=== PATIENT | female | born 1990 | race Caucasian/White ===

== ENCOUNTER 2017-09-09 21:12 | Observation (INO) | payer OTHER ==
--- NOTE | 2017-09-09 21:20 | PDOC ---
History of Present Illness - General Chief Complaint: Pain, Acute Stated Complaint: /UTI/ FLANK PAIN Time Seen by Provider: 09/09/17 21:19 History Source: Patient Exam Limitations: No Limitations - History of Present Illness Initial Comments: 09/09/17 22:54 This is a 27-year-old female who comes in complaining of right flank pain. Patient had some urgency earlier in the day and went to see her OB and had a urinalysis done the urinalysis showed a small amount of blood no white cells or bacteria and patient was started on Keflex for probable urinary tract infection. Patient prior to coming in and then symptoms developed severe right flank pain radiating to the right groin area with associated nausea. Here in the emergency room patient says the pain is an 8 out of 10. Patient's complaining of some nausea but no vomiting. Patient denies any fevers or chills. Patient is 19 weeks , she denies any vaginal discharge, bleeding or abdominal cramping. PAST MEDICAL HISTORY: no significant history PAST SURGICAL HISTORY: no significant history FAMILY HISTORY: no pertinant history SOCIAL HISTORY: Pt lives with family and is employed. MEDICATIONS: reviewed ALLERGIES: As per nursing notes Review of Systems General: No fevers or chills, no weakness, no weight loss HEENT: No change in vision. No sore throat,. No ear pain CardioVascular: No chest pain or shortness of breath Respiratory:No cough, or wheezing. Gastrointestinal: no nausea, vomitting, diarrhea or constipation, No rectal bleeding Genitourinary: No dysuria, hematuria, or frequency Musculoskeletal: No joint or muscle pain or swelling Neurologic: No headache, vertigo, dizziness or loss of consciousness Psychiatric: nor depression Skin: No rashes or easy bruising Endocrine: no increased thirst or abnormal weight change Allergic: no skin or latex allergy All other systems reviewed and normal Exam: General: Well-nourished well-developed individual, no acute distress HEENT: Throat: Normal, tonsils normal, no erythema or exudate Neck: Supple, no meningeal signs, no lymphadenopathy Eyes::Pupils equal reactive and round, extraocular motion intact Flank: There is right flank tenderness on palpation there is no CVA tenderness. Abdomen: Soft, nondistended, normal bowel sounds, mild tenderness right lateral lower abdominal area with no guarding or rebound Extremities: Warm, dry, no cyanosis, clubbing, or edema Skin: No rashes Neuro: Alert and oriented x3, CN II - XII intact, nonfocal exam with normal strength, normal sensation, normal reflexes, normal gait, Psych: Normal mood and affect Medical decision making: This is a 27-year-old female who is 19 weeks and comes in with a diagnosis of UTI based on urine in her blood but no arterial white cells. Patient was started on Keflex. Patient now developed severe flank pain radiating to her groin area. Patient has a family history of renal colic. Patient denies any personal history of renal colic. Will obtain a workup including ultrasound renal, CBC, comp, we'll give patient IV fluids. Discussed with patient pain medication as she is very uncomfortable and needs some pain medication. Patient is aware of the risks of both the opioids and Toradol. Patient opted for Toradol at this time. Patient is 19 weeks so other considered a class C. 09/09/17 23:50 Patient's ultrasound shows hydronephrosis but no definitive stone was seen. Given patient's symptoms there is a high level of suspicion for this being a kidney stone. As her urinalysis has a large amount of blood there is also some white cells and bacteria. Patient has an 18.8 thousand white count but no left shift neutrophils are 80%. Patient is feeling better post some fluids and Toradol, will give ceftriaxone for presumed infected stone with some obstruction versus pyelonephritis. Patient's OB who is at [facility] was contacted Dr. Suresh Chu discussed with patient's OB who recommended that we admit the patient for IV antibiotics and have the patient seen by urology to rule out probable stone. Past History - Past Medical History Allergies/Adverse Reactions: Allergies Allergy/AdvReac Type Severity Reaction Status Date / Time No Known Allergies Allergy Verified 09/09/17 21:16 Home Medications: Ambulatory Orders Cephalexin [Keflex] 500 mg PO BID 09/09/17 COPD: No - Suicide/Smoking/Psychosocial Hx Smoking History: Never smoked Have you smoked in the past 12 months: No Hx Alcohol Use: No Drug/Substance Use Hx: No Substance Use Type: None ED Treatment Course - LABORATORY CBC & Chemistry Diagram: 09/09/17 22:40 09/09/17 22:40 *DC/Admit/Observation/Transfer Diagnosis at time of Disposition: Pyelonephritis affecting in second trimester - Discharge Dispostion Condition at time of disposition: Stable Admit: Yes - Referrals - Patient Instructions - Post Discharge Activity
[2017-09-09 22:23] LABS: URINE APPEARANCE Clear; URINE BILIRUBIN Negative (NEGATIVE); URINE BLOOD 3+ (NEGATIVE); URINE COLOR YELLOW; URINE GLUCOSE (UA) Negative (NEGATIVE); URINE KETONE 2+ (NEGATIVE); URINE LEUK ESTERASE TRACE (NEGATIVE); URINE NITRITE Negative (NEGATIVE); URINE PROTEIN Trace (NEGATIVE); URINE UROBILINOGEN 0.2 (0.2-1.0)
[2017-09-09] MEDS ORDERED: SODIUM CHLORIDE 1,000 ML IV ONE (22:26)
[2017-09-09] MEDS ORDERED: ONDANSETRON 4 MG/2 ML VIAL IVPUSH ONE (22:26)
[2017-09-09] MEDS ORDERED: morphine CARPU-JECT 4 MG/1 ML DISP.SYRIN IVPUSH ONE (22:27)
[2017-09-09 22:28] LABS: EPI CELLS FEW /HPF; URINE BACTERIA FEW /hpf (NEGATIVE); URINE RBC >100 /hpf (0-3)
[2017-09-09] MEDS ORDERED: KETOROLAC TROMETHAMINE 30 MG/1 ML VIAL IVPUSH ONE (22:37)
[2017-09-09] MEDS ORDERED: KETOROLAC TROMETHAMINE 30 MG/1 ML VIAL ONE (22:44)
[2017-09-09] MEDS ORDERED: ONDANSETRON 4 MG/2 ML VIAL ONE (22:49)
[2017-09-09 23:03] LABS: BASO % 2.1 % (0-2.0); EOS % 0.2 % (0-4.5); HEMATOCRIT 39.5 % (32.4-45.2); HEMOGLOBIN 13.8 GM/dl (10.7-15.3); LYMPH % 13.6 % (8-40); MCH 29.2 pg (25.7-33.7); MCHC 34.8 g/dl (32.0-36.0); MEAN CELL VOLUME 83.9 fl (80-96); MEAN PLT VOLUME 7.3 fl (7.5-11.1); MONO % 3.5 % (3.8-10.2); NEUT % 80.6 % (42.8-82.8); PLATELET COUNT 269 K/MM3 (134-434); RBC 4.71 M/mm3 (3.60-5.2); RDW 12.8 % (11.6-15.6); WHITE BLOOD COUNT 18.8 K/mm3 (4.0-10.8)
[2017-09-09 23:12] LABS: ALBUMIN 3.4 g/dl (3.5-5.0); ALK PHOS 69 U/L (32-92); ANION GAP 8 (8-16); BLOOD UREA NITROGEN 8 mg/dl (7-18); CALCIUM 9.2 mg/dl (8.4-10.2); CHLORIDE 102 mmol/L (98-107); CO2 21 mmol/L (22-28); GLUCOSE,RANDOM 100 mg/dl (74-106); POTASSIUM 3.5 mmol/L (3.5-5.1); SGOT/AST 21 U/L (10-42); SGPT/ALT 22 U/L (10-40); SODIUM 131 mmol/L (136-145); TOT PROT 6.3 g/dl (6.4-8.3)
[2017-09-09] MEDS ORDERED: CEFTRIAXONE 1 GM in DEXTROSE 5%-WATER - 50 ML IVPB ONE (23:25)
[2017-09-09 23:26] LABS: BILIRUBIN,TOTAL < 0.5 mg/dl (0.2-1.0); CREATININE < 0.8 mg/dl (0.6-1.3)
[2017-09-09] MEDS ORDERED: cefTRIAXone SODIUM 1 GM VIAL ONE (23:45)
[2017-09-10] MEDS ORDERED: morphine CARPU-JECT 2 MG/1 ML DISP.SYRIN ONE (03:13)
[2017-09-10] MEDS ORDERED: morphine CARPU-JECT 2 MG/1 ML DISP.SYRIN IVPUSH ONE (03:22)
[2017-09-10 04:18] VITALS: BMI 33.2
--- NOTE | 2017-09-10 08:27 | CON.GU ---
Consult Consult Specialty:: Referred by:: Jg Reason for Consultation:: R hydronephrosis - History of Present Illness Chief Complaint: R flank pain History of Present Illness: 27 yo f 17-18 weeks , pres to ED c/o sudden onset severe R flank pain, found to have mild R hydro, leukocytosis 18 K, poss UTI and cons req. No fever chills - History Source History Provided By: Patient Limitations to Obtaining History: No Limitations - Past Medical History ...LMP: 04/18/17 ...: Yes - Alcohol/Substance Use Hx Alcohol Use: No - Smoking History Smoking history: Never smoked Have you smoked in the past 12 months: No Home Medications - Allergies Allergies/Adverse Reactions: Allergies Allergy/AdvReac Type Severity Reaction Status Date / Time No Known Allergies Allergy Verified 09/09/17 21:16 - Home Medications Home Medications: Ambulatory Orders Cephalexin [Keflex] 500 mg PO BID 09/09/17 Physical Exam- Vital Signs: Vital Signs Temperature 98.2 F 09/10/17 02:45 Pulse Rate 74 09/10/17 02:45 Respiratory Rate 16 09/10/17 02:45 Blood Pressure 108/58 09/10/17 02:45 O2 Sat by Pulse Oximetry (%) 98 09/10/17 02:45 Constitutional: Yes: Well Nourished, No Distress, Calm Eyes: Yes: WNL HENT: Yes: WNL Neck: Yes: WNL Cardiovascular: Yes: WNL Respiratory: Yes: WNL Gastrointestinal: Yes: WNL, Normal Bowel Sounds, Soft Renal/: Yes: CVA Tenderness - Right Labs: CBC, BMP 09/09/17 22:40 09/09/17 22:40 Imaging - Results Ultrasound: Report Reviewed Problem List - Problems (1) Hydronephrosis Code(s): N13.30 - UNSPECIFIED HYDRONEPHROSIS Qualifiers: Hydronephrosis type: with ureteral calculous obstruction Qualified Code(s) : N13.2 - Hydronephrosis with renal and ureteral calculous obstruction Assessment/Plan Imp: R hydronephrosis, leukocytosis, microscopic hematuria, ? R ureteral calculus, ? UTI Rec:ur c+s, IV abxs, ivfs, cysto and R JJ stent insertion if pain continues.
[2017-09-10 08:44] LABS: ANION GAP 4 (8-16); BLOOD UREA NITROGEN 8 mg/dl (7-18); CALCIUM 8.4 mg/dl (8.4-10.2); CHLORIDE 107 mmol/L (98-107); CO2 22 mmol/L (22-28); GLUCOSE,RANDOM 89 mg/dl (74-106); POTASSIUM 3.7 mmol/L (3.5-5.1); SODIUM 133 mmol/L (136-145)
[2017-09-10 08:45] LABS: HEMATOCRIT 34.7 % (32.4-45.2); HEMOGLOBIN 12.2 GM/dl (10.7-15.3); MCH 30.1 pg (25.7-33.7); MCHC 35.1 g/dl (32.0-36.0); MEAN CELL VOLUME 85.7 fl (80-96); MEAN PLT VOLUME 7.4 fl (7.5-11.1); PLATELET COUNT 242 K/MM3 (134-434); RBC 4.05 M/mm3 (3.60-5.2); WHITE BLOOD COUNT 13.4 K/mm3 (4.0-10.8)
[2017-09-10 09:07] LABS: INR 0.97 (0.82-1.09)
[2017-09-10 09:10] LABS: ACTIVATED PTT 24.7 SECONDS (26.9-34.4)
[2017-09-10 09:20] LABS: CREATININE < 0.8 mg/dl (0.6-1.3)
--- NOTE | 2017-09-10 10:29 | HP ---
CHIEF COMPLAINT: Right flank pain PCP: RESEARCH STAFF MEMBER: Dr. Suresh Chu [facility] HISTORY OF PRESENT ILLNESS: This is a 27 year old female with a past medical history of tension headaches who presented to the ED with sudden onset right flank pain yesterday. Pt was evaluated by her MANAGER PROTEIN earlier as she was having suprapubic "pressure". She was started on keflex. On exam today, pt with no further pain. ER course was notable for: (1) US renal no acute findings (2) WBC 18.8 (3) Sodium 131 Recent Travel: pt denies PAST MEDICAL HISTORY: tension headache PAST SURGICAL HISTORY: Appendectomy 2011 Social History: Smoking: pt denies Alcohol: pt denies Drugs: pt denies Family History: mother alive and well father with DM/HTN 1 brother/1 sister, no medical problems Allergies No Known Allergies Allergy (Verified 09/09/17 21:16) HOME MEDICATIONS: 3 Medication Instructions Recorded Cephalexin [Keflex] 500 mg PO BID 09/09/17 Amytriptyline 30mg daily REVIEW OF SYSTEMS CONSTITUTIONAL: Absent: fever, chills, diaphoresis, generalized weakness, malaise, loss of appetite, weight change HEENT: Absent: rhinorrhea, nasal congestion, throat pain, throat swelling, difficulty swallowing, mouth swelling, ear pain, eye pain, visual changes CARDIOVASCULAR: Absent: chest pain, syncope, palpitations, irregular heart rate, lightheadedness , peripheral edema RESPIRATORY: Absent: cough, shortness of breath, dyspnea with exertion, orthopnea, wheezing, stridor, hemoptysis GASTROINTESTINAL: Absent: abdominal pain, abdominal distension, nausea, vomiting, diarrhea, constipation, melena, hematochezia GENITOURINARY: Present: flank pain Absent: dysuria, frequency, urgency, hesitancy, hematuria, genital pain MUSCULOSKELETAL: Absent: myalgia, arthralgia, joint swelling, back pain, neck pain SKIN: Absent: rash, itching, pallor HEMATOLOGIC/IMMUNOLOGIC: Absent: easy bleeding, easy bruising, lymphadenopathy, frequent infections ENDOCRINE: Absent: unexplained weight gain, unexplained weight loss, heat intolerance, cold intolerance NEUROLOGIC: Absent: headache, focal weakness or paresthesias, dizziness, unsteady gait, seizure, mental status changes, bladder or bowel incontinence PSYCHIATRIC: Absent: anxiety, depression, suicidal or homicidal ideation, hallucinations. PHYSICAL EXAMINATION Vital Signs - 24 hr 3 09/09/17 09/10/17 09/10/17 21:18 02:45 09:00 Temperature 97.7 F 98.2 F 98.3 F Pulse Rate 85 74 94 H Respiratory 16 16 18 Rate Blood Pressure 105/59 108/58 106/56 O2 Sat by Pulse 100 98 100 Oximetry (%) GENERAL: Awake, alert, and fully oriented, in no acute distress. HEAD: Normal with no signs of trauma. EYES: Pupils equal, round and reactive to light, extraocular movements intact, sclera anicteric, conjunctiva clear. No lid lag. EARS, NOSE, THROAT: Ears normal, nares patent, oropharynx clear without exudates. Moist mucous membranes. NECK: Normal range of motion, supple without lymphadenopathy, JVD, or masses. LUNGS: Breath sounds equal, clear to auscultation bilaterally. No wheezes, and no crackles. No accessory muscle use. HEART: Regular rate and rhythm, normal S1 and S2 without murmur, rub or gallop. ABDOMEN: Soft, nontender, not distended, normoactive bowel sounds, no guarding, no rebound, no masses. No hepatomegaly or splenomegaly. MUSCULOSKELETAL: Normal range of motion at all joints. No bony deformities or tenderness. right CVA tenderness. UPPER EXTREMITIES: 2+ pulses, warm, well-perfused. No cyanosis. No clubbing. No peripheral edema. LOWER EXTREMITIES: 2+ pulses, warm, well-perfused. No calf tenderness. No peripheral edema. NEUROLOGICAL: Cranial nerves II-XII intact. Normal speech. Normal gait. PSYCHIATRIC: Cooperative. Good eye contact. Appropriate mood and affect. SKIN: Warm, dry, normal turgor, no rashes or lesions noted, normal capillary refill. Laboratory Results - last 24 hr 3 09/09/17 09/09/17 09/09/17 22:00 22:40 22:40 WBC 18.8 H RBC 4.71 Hgb 13.8 Hct 39.5 MCV 83.9 MCH 29.2 MCHC 34.8 RDW 12.8 Plt Count 269 MPV 7.3 L Neutrophils % 80.6 Lymphocytes % 13.6 Monocytes % 3.5 L Eosinophils % 0.2 Basophils % 2.1 H PT with INR INR PTT (Actin FS) Sodium 131 L Potassium 3.5 Chloride 102 Carbon Dioxide 21 L Anion Gap 8 BUN 8 Creatinine < 0.8 Creat Clearance w eGFR > 60 Random Glucose 100 Calcium 9.2 Total Bilirubin < 0.5 AST 21 ALT 22 Alkaline Phosphatase 69 Total Protein 6.3 L Albumin 3.4 L Urine Color Yellow Urine Appearance Clear Urine pH 6.0 Ur Specific Hamilton >= 1.030 H Urine Protein Trace Urine Glucose (UA) Negative Urine Ketones 2+ H Urine Blood 3+ H Urine Nitrite Negative Urine Bilirubin Negative Urine Urobilinogen 0.2 Ur Leukocyte Esterase Trace H Urine RBC >100 Urine WBC 5-10 Ur Epithelial Cells Few Urine Bacteria Few 3 09/10/17 09/10/17 09/10/17 08:00 08:00 08:00 WBC 13.4 H RBC 4.05 Hgb 12.2 D Hct 34.7 MCV 85.7 MCH 30.1 MCHC 35.1 RDW 13.0 Plt Count 242 MPV 7.4 L Neutrophils % Lymphocytes % Monocytes % Eosinophils % Basophils % PT with INR 11.00 INR 0.97 PTT (Actin FS) 24.7 L Sodium 133 L Potassium 3.7 Chloride 107 Carbon Dioxide 22 Anion Gap 4 L BUN 8 Creatinine < 0.8 Creat Clearance w eGFR Random Glucose 89 Calcium 8.4 Total Bilirubin AST ALT Alkaline Phosphatase Total Protein Albumin Urine Color Urine Appearance Urine pH Ur Specific Hamilton Urine Protein Urine Glucose (UA) Urine Ketones Urine Blood Urine Nitrite Urine Bilirubin Urine Urobilinogen Ur Leukocyte Esterase Urine RBC Urine WBC Ur Epithelial Cells Urine Bacteria Radiology Reports ASSESSMENT/PLAN: 27yF with PMH tension headaches presented to the ED with sudden onset R flank pain. R ureteral hydronephrosis, leukocytosis, ? ureteral calculi vs UTI/pyelo - cont ceftriaxone 1g IVPB HS - NS @ 125cc/hr - tamsulosin not given as pt is , no known human studies available. - strain all urine DVT PPX - defer heparin, likely DC in am FEN - NS @ 125cc/hr - bmp in am - regular diet as tolerated Dispo: pt currently requires further observation for management of her emergent condition. Visit type - Emergency Visit Emergency Visit: Yes ED Registration Date: 09/09/17 Care time: The patient presented to the Emergency Department on the above date and was hospitalized for further evaluation of their emergent condition. - New Patient This patient is new to me today: Yes Date on this admission: 09/10/17 - Critical Care Critical Care patient: No Hospitalist Screening - Colonoscopy Questionnaire Colonoscopy Questionnaire: Colonoscopy Questionnaire - Patient: 50 - 75 years old and never had a screening colonoscopy: No History of colon or rectal polyps, or CA: No History of IBD, Crohn's disease or UC: No History of abdominal radiation therapy as a child: No - Relative: 1 with colon or rectal CA, or polyps at age 60 or younger: No Colon or rectal CA diagnosed at age 45 or younger: No Multiple relatives with colon or rectal CA: No - Outcome: Screening Result: Negative Screen
[2017-09-10] MEDS: ACETAMINOPHEN 325 MG TABLET (FP) PO PRN ×2 (12:31→19:50)
[2017-09-10] MEDS: SODIUM CHLORIDE 1,000 ML IV SCH (19:32)
[2017-09-10] MEDS ORDERED: AMITRIPTYLINE HCL 10 MG TABLET (FP) PO SCH (22:00)
[2017-09-10] MEDS ORDERED: CEFTRIAXONE 1 G/50 ML PREMIX 50 ML IVPB SCH (22:00)
[2017-09-11 08:56] LABS: BASO % 0.3 % (0-2.0); EOS % 1.1 % (0-4.5); HEMOGLOBIN 11.5 GM/dl (10.7-15.3); MCH 28.8 pg (25.7-33.7); MCHC 33.9 g/dl (32.0-36.0); MEAN PLT VOLUME 7.6 fl (7.5-11.1); MONO % 4.4 % (3.8-10.2); NEUT % 74.2 % (42.8-82.8); PLATELET COUNT 191 K/MM3 (134-434); RDW 12.8 % (11.6-15.6); WHITE BLOOD COUNT 8.2 K/mm3 (4.0-10.8)
[2017-09-11 09:08] LABS: ANION GAP 3 (8-16); CALCIUM 7.9 mg/dl (8.4-10.2); CHLORIDE 108 mmol/L (98-107); CO2 23 mmol/L (22-28); GLUCOSE,RANDOM 81 mg/dl (74-106); MAGNESIUM 1.6 mg/dL (1.8-2.4); PHOSPHOROUS 2.8 mg/dl (2.5-4.6); SODIUM 134 mmol/L (136-145)
[2017-09-11 09:33] LABS: BLOOD UREA NITROGEN < 6 mg/dl (7-18); CREATININE < 0.8 mg/dl (0.6-1.3)
[2017-09-11] MEDS ORDERED: MAGNESIUM SULFATE 2 GM in SODIUM CHLORIDE 100 ML IVPB ONE (09:49)
--- NOTE | 2017-09-11 09:51 | PN ---
Physical Exam: SUBJECTIVE: Patient seen and examined, denies any flank pain, nausea or vomiting. OBJECTIVE: Patient is a 27 y/o female, , patient is 19 weeks gestation, pmh of tension headaches, admitted to observation from the emergency department for mild right sided hydronephrosis Vital Signs Period Temp Pulse Resp BP Sys/Maurer Pulse Ox Last 24 Hr 97.6 F-98.3 F 74-87 18-20 106-125/66-86 97-100 GENERAL: The patient is awake, alert, and fully oriented, in no acute distress. HEAD: Normal with no signs of trauma. EYES: PERRL, extraocular movements intact, sclera anicteric, conjunctiva clear. No ptosis. ENT: Ears normal, nares patent, oropharynx clear without exudates, moist mucous membranes. NECK: Trachea midline, full range of motion, supple. LUNGS: Breath sounds equal, clear to auscultation bilaterally, no wheezes, no crackles, no accessory muscle use. HEART: Regular rate and rhythm, S1, S2 without murmur, rub or gallop. ABDOMEN: Soft, nontender, nondistended, normoactive bowel sounds, no guarding, no rebound, no hepatosplenomegaly, no masses. EXTREMITIES: 2+ pulses, warm, well-perfused, no edema. NEUROLOGICAL: Cranial nerves II through XII grossly intact. Normal speech, gait not observed. PSYCH: Normal mood, normal affect. SKIN: Warm, dry, normal turgor, no rashes or lesions noted Laboratory Results - last 24 hr CBC WBC 8.2 K/mm3 (4.0-10.8) D 09/11/17 07:15 RBC 4.00 M/mm3 (3.60-5.2) 09/11/17 07:15 Hgb 11.5 GM/dl (10.7-15.3) 09/11/17 07:15 Hct 34.0 % (32.4-45.2) 09/11/17 07:15 MCV 85.0 fl (80-96) 09/11/17 07:15 MCH 28.8 pg (25.7-33.7) 09/11/17 07:15 MCHC 33.9 g/dl (32.0-36.0) 09/11/17 07:15 RDW 12.8 % (11.6-15.6) 09/11/17 07:15 Plt Count 191 K/MM3 (134-434) 09/11/17 07:15 MPV 7.6 fl (7.5-11.1) 09/11/17 07:15 Neutrophils % 74.2 % (42.8-82.8) 09/11/17 07:15 Lymphocytes % 20.0 % (8-40) 09/11/17 07:15 Monocytes % 4.4 % (3.8-10.2) 09/11/17 07:15 Eosinophils % 1.1 % (0-4.5) 09/11/17 07:15 Basophils % 0.3 % (0-2.0) 09/11/17 07:15 CMP Sodium 131 mmol/L (136-145) L 09/11/17 15:00 Potassium 3.6 mmol/L (3.5-5.1) 09/11/17 15:00 Chloride 108 mmol/L (98-107) H 09/11/17 15:00 Carbon Dioxide 23 mmol/L (22-28) 09/11/17 15:00 Anion Gap 0 (8-16) L 09/11/17 15:00 BUN < 6 mg/dl (7-18) L 09/11/17 15:00 Creatinine < 0.8 mg/dl (0.6-1.3) 09/11/17 15:00 Creat Clearance w eGFR > 60 (>60) 09/11/17 15:00 Random Glucose 88 mg/dl (74-106) 09/11/17 15:00 Calcium 8.2 mg/dl (8.4-10.2) L 09/11/17 15:00 Phosphorus 2.8 mg/dl (2.5-4.6) 09/11/17 07:15 Magnesium 1.6 mg/dL (1.8-2.4) L 09/11/17 07:15 Total Bilirubin < 0.5 mg/dl (0.2-1.0) 09/11/17 15:00 AST 15 U/L (10-42) D 09/11/17 15:00 ALT 22 U/L (10-40) 09/11/17 15:00 Alkaline Phosphatase 64 U/L (32-92) 09/11/17 15:00 Total Protein 6.0 g/dl (6.4-8.3) L 09/11/17 15:00 Albumin 2.9 g/dl (3.5-5.0) L 09/11/17 15:00 Active Medications Generic Name Dose Route Start Last Admin Trade Name Freq PRN Reason Stop Dose Admin Acetaminophen 650 mg 09/10/17 13:18 09/10/17 19:50 Tylenol - PO 650 mg Q6H PRN Administration PAIN LEVEL 1-5 Amitriptyline HCl 30 mg 09/10/17 22:00 09/10/17 21:31 Elavil - PO 30 mg HS YOBANY Administration Sodium Chloride 1,000 mls @ 125 mls/hr 09/10/17 08:30 09/10/17 19:32 Normal Saline - IV 125 mls/hr ASDIR YOBANY Administration CEFTRIAXONE 1 G/50 ML PREMIX 50 mls @ 100 mls/hr 09/10/17 22:00 09/10/17 21: 31 Ceftriaxone 1 Gm-D5w Bag IVPB 100 mls/hr HS YOBANY Administration Magnesium Sulfate 2 gm/ Sodium 104 mls @ 100 mls/hr 09/11/17 09:49 Chloride IVPB 09/11/17 10:51 ONCE ONE Potassium Chloride 10 meq in 100 mls @ 100 mls/hr 09/11/17 10:00 Potassium Chloride 10 Meq Premix Ivpb - IVPB 09/11/17 11:59 Q60M YOBANY Potassium Chloride 40 meq 09/11/17 09:49 K-Dur - PO 09/11/17 09:50 ONCE ONE IMAGING ultrasound of kidney: mild right sided hydronephrosisi Microbiology 09/10/17 08:00 Urine - Urine Clean Catch Urine Culture - Final NO GROWTH OBTAINED ASSESSMENT/PLAN: ureteral hydronephrosis, - no leukocytosis, urine culture negative - continue rocephin empiric - continue straining all urine - Dr Johnson, urology consulted and followed hypokalcemia - potassium 3.0, 40meq kci po x 1 and kci 10meq x 2 ordered, repeat potassium at 1600 potassium improved to 3.6 Visit type - Emergency Visit Emergency Visit: Yes ED Registration Date: 09/09/17 Care time: The patient presented to the Emergency Department on the above date and was hospitalized for further evaluation of their emergent condition. - New Patient This patient is new to in today: No - Critical Care Critical Care patient: No - Discharge Referral Referred to [facility] Med P.C.: No
[2017-09-11] MEDS ORDERED: MAGNESIUM SULFATE IN WATER 2 GM/50 ML IVPB IVPB ONE (10:00)
[2017-09-11] MEDS ORDERED: POTASSIUM CHLORIDE TABS 20 MEQ TABLET.ER (FP) PO ONE (10:00)
[2017-09-11] MEDS: KCL 10 MEQ IVPB 10 MEQ/100 ML INFUS.BAG IVPB SCH ×2 (10:45→12:27)
[2017-09-11] MEDS: SODIUM CHLORIDE 1,000 ML IV SCH (10:45)
[2017-09-11 14:17] VITALS: BP 117/55; PULSE 86; TEMP 98.5
[2017-09-11 15:36] LABS: ALBUMIN 2.9 g/dl (3.5-5.0); ALK PHOS 64 U/L (32-92); ANION GAP 0 (8-16); CALCIUM 8.2 mg/dl (8.4-10.2); CHLORIDE 108 mmol/L (98-107); CO2 23 mmol/L (22-28); GLUCOSE,RANDOM 88 mg/dl (74-106); POTASSIUM 3.6 mmol/L (3.5-5.1); SGOT/AST 15 U/L (10-42); SGPT/ALT 22 U/L (10-40); SODIUM 131 mmol/L (136-145)
[2017-09-11 15:50] LABS: BILIRUBIN,TOTAL < 0.5 mg/dl (0.2-1.0); BLOOD UREA NITROGEN < 6 mg/dl (7-18); CREATININE < 0.8 mg/dl (0.6-1.3)
--- NOTE | 2017-09-12 08:24 | DS ---
Physical Exam: SUBJECTIVE: Patient seen and examined, ambulatory throughout nursing station, tolerating diet, denies any abdominal pain, nausea or vomiting OBJECTIVE:This is a 27 year old female with a past medical history of tension headaches who presented to the ED with sudden onset right flank pain yesterday. Pt was evaluated by her FOOD PREP WORKER earlier as she was having suprapubic "pressure". She was started on keflex. On exam today, pt with no further pain. ER course was notable for: (1) US renal no acute findings (2) WBC 18.8 (3) Sodium 131 Vital Signs Period Temp Pulse Resp BP Sys/Maurer Pulse Ox Last 24 Hr 98.5 F 86 18 117/55 97-99 PHYSICAL EXAM GENERAL: The patient is awake, alert, and fully oriented, in no acute distress. HEAD: Normal with no signs of trauma. EYES: PERRL, extraocular movements intact, sclera anicteric, conjunctiva clear. ENT: Ears normal, nares patent, oropharynx clear without exudates, moist mucous membranes. NECK: Trachea midline, full range of motion, supple. LUNGS: Breath sounds equal, clear to auscultation bilaterally, no wheezes, no crackles, no accessory muscle use. HEART: Regular rate and rhythm, S1, S2 without murmur, rub or gallop. ABDOMEN: Soft, nontender, nondistended, normoactive bowel sounds, no guarding, no rebound, no hepatosplenomegaly, no masses. EXTREMITIES: 2+ pulses, warm, well-perfused, no edema. NEUROLOGICAL: Cranial nerves II through XII grossly intact. Normal speech, gait not observed. PSYCH: Normal mood, normal affect. SKIN: Warm, dry, normal turgor, no rashes or lesions noted. LABS Laboratory Results - last 24 hr 09/11/17 09/11/17 09/11/17 07:15 07:15 15:00 WBC 8.2 D RBC 4.00 Hgb 11.5 Hct 34.0 MCV 85.0 MCH 28.8 MCHC 33.9 RDW 12.8 Plt Count 191 MPV 7.6 Neutrophils % 74.2 Lymphocytes % 20.0 Monocytes % 4.4 Eosinophils % 1.1 Basophils % 0.3 Sodium 134 L 131 L Potassium 3.0 L 3.6 Chloride 108 H 108 H Carbon Dioxide 23 23 Anion Gap 3 L 0 L BUN < 6 L D < 6 L Creatinine < 0.8 < 0.8 Creat Clearance w eGFR > 60 Random Glucose 81 88 Calcium 7.9 L 8.2 L Phosphorus 2.8 Magnesium 1.6 L Total Bilirubin < 0.5 AST 15 D ALT 22 Alkaline Phosphatase 64 Total Protein 6.0 L Albumin 2.9 L Microbiology 09/10/17 08:00 Urine - Urine Clean Catch Urine Culture - Final NO GROWTH OBTAINED IMAGING ultrasound of kidney: mild right sided hydronephrosis HOSPITAL COURSE: Date of Admission:09/09/17 Date of Discharge: 09/12/17 Minutes to complete discharge: 45 Discharge Summary Reason For Visit: /UTI/ FLANK PAIN Condition: Stable - Instructions Diet, Activity, Other Instructions: - continue to keep yourself hydrated - please strain all urine - take ceftin as prescribed - continue vitamins daily - please follow up with your supervisor hot dip tinning within 1 week - please follow up with the urologist within 2 weeks - if any new or persistent symptoms develop please return to the emergency department Referrals: Bernardo Johnson MD [Staff Physician] - Disposition: HOME - Home Medications Comprehensive Discharge Medication List: Ambulatory Orders Acetaminophen [Tylenol .Regular Strength -] 650 mg PO Q6H PRN tablet 09/11/17 Amitriptyline HCl [Elavil -] 30 mg PO HS tablet 09/11/17 Cefuroxime Axetil [Ceftin -] 250 mg PO BID #10 tablet 09/11/17 This patient is new to me today: No Emergency Visit: Yes ED Registration Date: 09/09/17 Care time: The patient presented to the Emergency Department on the above date and was hospitalized for further evaluation of their emergent condition. Critical Care patient: No - Discharge Referral Referred to [facility] Med P.C.: No
== END 2017-09-11 18:00 | disposition home or self-care (01) ==
LOC: FER 21:12 → FM/S 23:53 → UNDOADMOB 09-10 00:35 → FM/S 09-10 05:52
PROVIDERS: ADMIT Internal Medicine; ATTEND Nurse Practitioner Family
PROC: 3E03329 Introduction of Other Anti-infective into Peripheral Vein, Percutaneous Approach (ICD-10-PCS; principal; 2017-09-09)
PROC: 3E0333Z Introduction of Anti-inflammatory into Peripheral Vein, Percutaneous Approach (ICD-10-PCS; 2017-09-09)
PROC: 3E033GC Introduction of Other Therapeutic Substance into Peripheral Vein, Percutaneous Approach (ICD-10-PCS; 2017-09-09)
PROC: 3E0337Z Introduction of Electrolytic and Water Balance Substance into Peripheral Vein, Percutaneous Approach (ICD-10-PCS; 2017-09-09)
DX: O23.02 Infections of kidney in pregnancy, second trimester (principal); Z3A.19 19 weeks gestation of pregnancy; N13.6 Pyonephrosis; N20.1 Calculus of ureter; D72.829 Elevated white blood cell count, unspecified
CPT/HCPCS: 36415; 76775-TC; 80048; 80053; 81003; 81015; 83735; 84100; 85025; 85027; 85610; 85730; 87086; 96361; 96365; 96367; 96375; 99281-25; G0378; J7030